=== PATIENT | female | born 1945 | race Caucasian/White ===

== ENCOUNTER 2020-01-01 13:50 | Outpatient (CLI) | payer OTHER, SELFPAY ==
--- NOTE | ~2020-01-01 | MR_ITS ---
EXAMINATION: MR lumbar spine wo con DATE: 01/01/2020 14:46 INDICATION: Lumbar radiculopathy. TECHNIQUE: Magnetic resonance imaging (MRI) of the lumbar spine was performed without intravenous con trast. Sequences included sagittal T2-weighted FSE, sagittal T2-weighted FS FSE, sagittal T1-weighted FSE, and axial T2-weighted FSE. COMPARISON: None FINDINGS: There is 10 degrees dextroscoliosis of thoracolumbar spine. There is 4 mm retrolisthesis of L2 on L3, 3 mm retrolisthesis of L3 on L4, and 6 mm anterolisthesis of L5 on S1. Vertebral body heig hts are normal. There is severely decreased disc height from L1-L2 through L5-S1. The distal spinal c ord signal intensity is normal. The conus medullaris is at L1. 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 The following disc levels are specifically discussed: L1-L2: The disc is bulging. There is mild bilateral facet joint osteoarthritis. There is mild bilater al neural foraminal stenosis. There is mild central canal stenosis. L2-L3: The disc is bulging. There is no facet joint osteoarthritis. There is mild right and moderate left neural foraminal stenosis. There is mild central canal stenosis. L3-L4: The disc is bulging. There is mild bilateral facet joint osteoarthritis. There is mild bilater al neural foraminal stenosis. There is mild central canal stenosis. L4-L5: The disc is bulging. There is severe right and moderate left facet joint osteoarthritis. There is moderate right and mild left neural foraminal stenosis. There is mild central canal stenosis. L5-S1: The disc is bulging and has an annular fissure. There is severe bilateral facet joint osteoart hritis. There is mild bilateral neural foraminal stenosis. There is mild central canal stenosis. IMPRESSION: 1. Severe lumbar spondylosis. 2. Thoracolumbar dextroscoliosis. Reviewed, dictated and finalized at location A.
== END 2020-01-01 13:51 | disposition home or self-care (01) ==
PROVIDERS: PCP Internal Medicine; Visit Provider Internal Medicine Rheumatology
DX: M47.26 Other spondylosis with radiculopathy, lumbar region (principal)
CPT/HCPCS: 72148

== ENCOUNTER 2021-01-13 09:14 | Outpatient (CLI) | payer OTHER, SELFPAY ==
[2021-01-13 10:50] LABS: Cholesterol 233 mg/dL (0-200); HDL Direct 57 mg/dL (40-60); LDL Cholesterol Calculated 151 mg/dL (<130); Triglycerides 126 mg/dL (0-150)
== END 2021-01-13 09:15 | disposition home or self-care (01) ==
LOC: CHSLAB 09:17
PROVIDERS: PCP Internal Medicine; Visit Provider Internal Medicine
DX: E78.2 Mixed hyperlipidemia (principal)
CPT/HCPCS: 36415; 80061

== ENCOUNTER 2021-07-04 19:52 | Emergency (ER) | payer OTHER, SELFPAY ==
--- NOTE | ~2021-07-04 | CT_ITS ---
EXAMINATION: CT brain wo con INDICATION: Head injury COMPARISON: None TECHNIQUE: Standard unenhanced head CT. The dose-length product (DLP) was 529.67 mGy-cm. The mA was a djusted according to patient size. Iterative reconstruction technique was employed. FINDINGS: There is no acute intraparenchymal hemorrhage. No evidence of mass lesion. No evidence of a cute infarction. There is mild periventricular and subcortical hypodensity probably related to small vessel ischemic disease. There is mild prominence of the sulci and ventricles related to cerebral atr ophy. Intracranial calcified cerebral atherosclerosis is noted. There are no extra-axial collections. There is no mass effect or midline shift. The orbits and soft tissues are unremarkable. There is mil d mucosal thickening of the paranasal sinuses. IMPRESSION: 1. No acute intracranial abnormality. 2. Age related findings. Reviewed, dictated and finalized at location F. WORK ESTIMATOR
[2021-07-04 21:18] VITALS: BP 149/116; PULSE 85; RESP 18; TEMP 37.1; O2SAT 98
--- NOTE | 2021-07-04 21:20 | ED.HEATRA ---
HPI - Head Injury General Chief complaint: Head Injury Stated complaint: head injury Source: patient and RN notes reviewed Mode of arrival: ambulatory Limitations: no limitations History of Present Illness HPI Narrative: patient tripped over her own feet and fell striking her head against the corner [place] the [place] Complaint: head injury and fall Mechanism of Injury: fall Place: home Loss of Consciousness: no Location of injury: parietal Severity: mild Quality: dull ( pain gone now) Radiation: none Other Injuries: laceration Associated symptoms: denies other symptoms Related Data Allergies Allergy/AdvReac Type Severity Reaction Status Date / Time etodolac Allergy Intermediate ELEVATED Verified 07/04/21 21:41 LIVER ENZYMES Lodine Allergy Intermediate Hives Uncoded 07/04/21 21:41 Review of Systems Review of Systems: All systems reviewed & are unremarkable except as noted in HPI and below Eyes: Eyes: Denies change in vision Gastrointestinal: Gastrointestinal: Denies nausea and Denies vomiting Neurologic: Denies confusion, Denies vertigo, Denies dizziness, Denies syncope, Denies headache(s) and Denies focal weakness Exam Const: General: healthy appearing, no acute distress and alert Nutritional Appearance: well nourished Orientation/consciousness: patient oriented x3 HENMT: Ears: TM's normal bilaterally Eyes: Conjunctivae: conjunctivae normal Pupils: Equal, round and reactive pupils present EOM: EOMs intact bilaterally Neck: Neck: normal visual inspection Resp: Effort & Inspection: normal respiratory effort Auscultation: clear to auscultation bilaterally Cardio: Rate: regular rate Rhythm: regular rhythm GI: GI Palp: Yes Soft to palpation and No Tenderness to palpation present (GI) Auscultation: normal bowel sounds Back/Spine/Pelvis: Cervical Spine: cervical ROM normal Thoracic/Lumbar Spine: thoraco-lumbar ROM normal Skin: General skin exam: normal color Wounds: wounds noted laceration left parietal region size (2 cm), drainage bloody and open Neuro: General: patient oriented x3, moves all extremities, no meningeal signs and no focal motor deficits Cranial nerves: Yes CN's II-XII intact bilaterally Speech: normal speech Gait exam (Neuro): Normal gait present Other: GCS 15 Extrem: General: normal to inspection and no clubbing, cyanosis or edema Psych: Appearance: grossly normal and well kempt Mental Status: mental status grossly normal Affect: normal affect Attitude: cooperative Thought content: Yes Normal thought content present Course Vital Signs Vital signs: Vital Signs Temperature 37.1 C 07/04/21 21:18 Pulse Rate 85 07/04/21 21:18 Respiratory Rate 18 07/04/21 21:18 Blood Pressure 149/116 H 07/04/21 21:18 Pulse Oximetry 98 07/04/21 21:18 Temperature 36.6 C 07/04/21 22:25 Pulse Rate 80 07/04/21 22:25 Respiratory Rate 18 07/04/21 22:25 Blood Pressure 134/82 07/04/21 22:25 Pulse Oximetry 100 07/04/21 22:25 Procedures Laceration Laceration 1: Date: 07/04/21 Site: scalp Side (If applicable): left Description: linear Depth: simple, single layer Local Anesthetic: lidocaine 1% and with epi Amount of anesthesia used (mL): 7 Pre-repair: wound explored ( cleansed with Shur-Clens) ====== Skin Level ====== Skin layer closed with: randell (4) ====== Subcutaneous Layer ====== ====== Muscle Layer ====== ====== Tendon Layer ====== Discharge Plan Discharge Clinical Impression: Laceration of scalp without foreign body Patient Disposition: Home, Self-Care Condition: Improved Instructions: Head Injury (ED), Staple Care (ED) Additional Instructions: do not get wet for 36 hours. [place] out and 7-10 days. Use Tylenol and or Motrin as needed for pain. Follow-up/Referrals: Polina Ramires MD [Primary Care Provider] - Time of Disposition: 22:25
[2021-07-04 22:25] VITALS: BP 134/82; PULSE 80; RESP 18; TEMP 36.6; O2SAT 100
[2021-07-04] MEDS: LIDO 1%/EPINEPHRINE 1:100,000 20 ML VIAL INFILTRATE (22:38)
[2021-07-04] MEDS: TETANUS,DIPHTHERIA,AC PERTUSSIS ADULT 0.5 ML (ADACEL) IM (23:08)
== END 2021-07-04 22:32 | disposition home or self-care (01) ==
PROVIDERS: Emergency Provider Emergency Medicine; PCP Internal Medicine
DX: S01.01XA Laceration without foreign body of scalp, initial encounter (principal); W01.198A Fall on same level from slipping, tripping and stumbling with subsequent striking against other object, initial encounter
CPT/HCPCS: 12001; 70450; 90471; 90715; 99282; 99284

== ENCOUNTER 2021-12-19 11:34 | Outpatient (CLI) | payer OTHER, SELFPAY ==
--- NOTE | ~2021-12-19 | CT_ITS ---
EXAMINATION: CT soft tissue neck wo con DATE: 12/19/2021 11:57 INDICATION: Thyroid enlargement TECHNIQUE: Computed tomography (CT) of the neck was performed without intravenous contrast. Automated exposure control and iterative reconstruction technique were employed. The dose-length product was 5 49.36 mGy-cm. COMPARISON: None FINDINGS: Thyroid gland is normal in size with suggestion of a 6 mm hypodense likely benign nodule in the right thyroid. Submandibular and parotid glands are symmetric. There are scattered normal-sized lymph no larry in the neck, no lymphadenopathy. No masses identified. Orbits are unremarkable. Visualized porti on of the thoracic aorta is normal in caliber. Densely calcified subcarinal lymph nodes consistent wi th old granulomatous disease. Visualized upper lungs are clear. Visualized sinuses and mastoid aircel ls are well aerated. Severe multilevel cervical and upper thoracic spondylosis with posterior disc os teophyte complexes resulting in mild central canal stenosis at C3-C4 through C6-C7. There is also mul tilevel mild right-sided and mild to moderate left-sided neural foraminal stenosis resulting from sev ere multilevel bilateral cervical facet and uncovertebral osteoarthritis. IMPRESSION: 1. Likely benign 6 mm nodule in the right thyroid lobe. Thyroid otherwise normal and there is no path ologically enlarged lymphadenopathy at the head, neck or visualized upper chest. 2. Severe cervical and upper thoracic spondylosis. Reviewed, dictated and finalized at location A. IMPRESSION: 1. Likely benign 6 mm nodule in the right thyroid lobe. Thyroid otherwise home l and there is no pathologically enlarged lymphadenopathy at the head, neck or visualized upper chest. 2. Severe cervical and upper thoracic spondylosis.
== END 2021-12-19 11:35 | disposition home or self-care (01) ==
LOC: CHSIMG 11:36
PROVIDERS: PCP Internal Medicine; Visit Provider Internal Medicine
DX: R49.0 Dysphonia (principal); E04.9 Nontoxic goiter, unspecified
CPT/HCPCS: 70490

== ENCOUNTER 2022-04-19 10:04 | Outpatient (RCR) | payer OTHER, SELFPAY ==
--- NOTE | 2022-04-19 10:57 | PTOPEVAL1 ---
Assessment and note entered by Shimon Monroe Evaluation Information Assessment Status Evaluation Diagnosis lumbar radiculopathy Onset 03/31/22 Subjective Information Pt. reports she has had on/off back pain for years . She reports that she has done therapy in the past with some success. She reports that she has recently noticed that her walking and her balance are worsening. She reports that she is falling and has fallen 2 times in the past 6 months. She reports that she does not use an AD. She continues to drive and perform all IADL's despite balance issues. She reports that her back pain is constant and is across the lwo back on both sides . She reports that pain will also occasionally radiate down the right leg. She reports that back pain is most notable with prolonged standing activities. She reports that her goal for therapy remains to mostly improve her balance and decrease pain. Reported Pain Level Pain Score 2: Self Report Assessment PT Clinical Summary Pt. is a 76 year old female who enters the clinic due to low back pain. Her biggest concern is in regards to impaired balance. She presents with moderate fall risk, back pain, impaired gait and l .e. weakness. Continued treatment is indicated in order to improve these areas to allow for improved comfort and safety with IADL's Plan of Care Interventions Electrical Stimulation,Gait Training,Manual Therapy,Mechanical Traction,Neuro Re-education, Therapeutic Activities,Therapeutic Exercise PT Services Indicated Yes Treatment Frequency and 2x/week x 10 visits Duration These treatments will address the objective and functional deficits as defined above. The patient will be advanced safely and appropriately in order for the patient to progress towards his/her prior level of function. Additional exercises will be introduced and as well as a comprehensive home exercise program upon discharge, if needed, ?to ensure carryover of functional gains achieved in the clinic. This treatment plan has been reviewed and agreement upon by the patient.
--- NOTE | 2022-05-24 16:19 | PTOPEVAL1 ---
Assessment and note entered by Shimon Monroe Evaluation Information Assessment Status Discharge Diagnosis lumbar radiculopathy Onset 03/31/22 Subjective Information Pt. reports little pain on this date. She reports that she still has moments that pain levels can be 6/10. She has noticed improvements in her core strength. She also expresses concerns regarding her balance. Reported Pain Level Pain Score 2: Self Report Assessment PT Clinical Summary Pt. demonstrates progress in regards to strength and functional testing. She continues to present with weakness and impaired gait, despite progress. She expresses desire to continue with treatment. At this time recommend pt. attend therapy at a decreased frequency to continue to monitor progress in regards to strength and to continue to decrease pain. Plan of Care Interventions Electrical Stimulation,Hot Pack/Cold Pack,Manual Therapy,Therapeutic Activities,Therapeutic Exercise Other Interventions dry needling Treatment Frequency and 1x/week every 2 weeks for 4 visits Duration These treatments will address the objective and functional deficits as defined above. The patient will be advanced safely and appropriately in order for the patient to progress towards his/her prior level of function. Additional exercises will be introduced and as well as a comprehensive home exercise program upon discharge, if needed, ?to ensure carryover of functional gains achieved in the clinic. This treatment plan has been reviewed and agreement upon by the patient.
== END 2022-07-26 23:59 | disposition home or self-care (01) ==
LOC: CHSPT 10:04
DX: M54.16 Radiculopathy, lumbar region (principal)
CPT/HCPCS: 97014; 97110; 97112; 97140; 97161; 97530; G0283

== ENCOUNTER 2022-10-31 14:47 | Outpatient (CLI) | payer OTHER, SELFPAY ==
[2022-11-05 20:12] LABS: Vitamin D 25 Hydroxy 46 ng/mL (30-100)
== END 2022-10-31 14:48 | disposition home or self-care (01) ==
LOC: CHSLAB 14:48
PROVIDERS: PCP Internal Medicine; Visit Provider Internal Medicine Rheumatology
DX: E55.9 Vitamin D deficiency, unspecified (principal)
CPT/HCPCS: 36415; 82306

== ENCOUNTER 2023-03-26 13:47 | Outpatient (CLI) | payer OTHER, SELFPAY ==
[2023-03-26 14:02] LABS: Basophils Absolute Auto 0.04 K/mm3 (0.00-0.10); Basophils Percent Auto 0.7 % (0.0-1.0); Eosinophils Percent Auto 1.8 % (1.0-6.0); Hematocrit 43.4 % (35.0-42.0); Hemoglobin 14.4 g/dL (11.7-13.8); Immature Granulocyte Absolute 0.02 K/mm3 (0.00-0.00); Immature Granulocyte Percent A 0.4 % (0.0-0.0); Lymphocytes Absolute Auto 1.83 K/mm3 (1.10-4.50); Lymphocytes Percent Auto 32.1 % (18.0-42.0); Mean Corpuscular HGB Conc 33.2 g/dL (32.0-36.0); Mean Corpuscular Hemoglobin 31.4 pg (27.0-31.0); Mean Corpuscular Volume 94.6 fL (78.0-102.0); Mean Platelet Volume 9.1 fl (9.2-11.8); Monocytes Absolute Auto 0.52 K/mm3 (0.10-0.90); Monocytes Percent Auto 9.1 % (2.0-11.0); Neutrophils Absolute Auto 3.2 K/mm3 (1.7-7.2); Neutrophils Percent Auto 55.9 % (50.0-70.0); Platelet Count Result 211 K/mm3 (150-420); Red Blood Count 4.59 M/mm3 (4.20-5.40); Red Cell Distribution Width 12.1 % (11.6-14.4); White Blood Count 5.7 K/mm3 (4.8-10.8)
[2023-03-26 14:33] LABS: Alanine Aminotransferase 35 U/L (14-59); Albumin Level 3.9 g/dL (3.4-5.0); Alkaline Phosphatase 76 U/L (46-116); Anion Gap 11 mmol/L (8-16); Aspartate Amino Transferase 23 U/L (15-37); Bilirubin,Total 0.5 mg/dL (0.00-1.00); Blood Urea Nitrogen 16 mg/dL (7-18); Calcium 9.9 mg/dL (8.5-10.1); Carbon Dioxide 28 mmol/L (21-32); Chloride 103 mmol/L (98-108); Estimated Glomerular Filt Rate > 60; Glucose 92 mg/dL (70-99); Osmolality Calculated 295 mOsm/kg (285-295); Potassium 4.1 mmol/L (3.5-5.1); Sodium 142 mmol/L (136-145); Total Protein 7.2 g/dL (6.4-8.2)
[2023-03-31 22:50] LABS: Vitamin D 25 Hydroxy 49 ng/mL (30-100)
== END 2023-03-26 13:48 | disposition home or self-care (01) ==
LOC: CHSLAB 13:50
PROVIDERS: PCP Internal Medicine; Visit Provider Internal Medicine Rheumatology
DX: G47.62 Sleep related leg cramps (principal); Z79.899 Other long term (current) drug therapy
CPT/HCPCS: 36415; 80053; 82306; 85025

== ENCOUNTER 2023-07-19 09:14 | Outpatient (CLI) | payer OTHER, SELFPAY ==
[2023-07-19 09:26] LABS: Basophils Absolute Auto 0.03 K/mm3 (0.00-0.10); Basophils Percent Auto 0.5 % (0.0-1.0); Eosinophils Absolute Auto 0.05 K/mm3 (0.02-0.50); Eosinophils Percent Auto 0.8 % (1.0-6.0); Hematocrit 42.2 % (35.0-42.0); Immature Granulocyte Absolute 0.03 K/mm3 (0.00-0.00); Immature Granulocyte Percent A 0.5 % (0.0-0.0); Lymphocytes Absolute Auto 1.48 K/mm3 (1.10-4.50); Lymphocytes Percent Auto 23.6 % (18.0-42.0); Mean Corpuscular HGB Conc 33.2 g/dL (32.0-36.0); Mean Corpuscular Hemoglobin 30.8 pg (27.0-31.0); Mean Platelet Volume 8.9 fl (9.2-11.8); Monocytes Absolute Auto 0.39 K/mm3 (0.10-0.90); Monocytes Percent Auto 6.2 % (2.0-11.0); Neutrophils Absolute Auto 4.3 K/mm3 (1.7-7.2); Neutrophils Percent Auto 68.4 % (50.0-70.0); Platelet Count Result 194 K/mm3 (150-420); Red Blood Count 4.54 M/mm3 (4.20-5.40); Red Cell Distribution Width 12.2 % (11.6-14.4); White Blood Count 6.3 K/mm3 (4.8-10.8)
[2023-07-19 10:37] LABS: Alanine Aminotransferase 32 U/L (14-59); Albumin Level 3.8 g/dL (3.4-5.0); Alkaline Phosphatase 78 U/L (46-116); Anion Gap 11 mmol/L (8-16); Aspartate Amino Transferase 19 U/L (15-37); Bilirubin,Total 0.4 mg/dL (0.00-1.00); Blood Urea Nitrogen 22 mg/dL (7-18); Calcium 9.4 mg/dL (8.5-10.1); Carbon Dioxide 30 mmol/L (21-32); Chloride 102 mmol/L (98-108); Estimated Glomerular Filt Rate > 60; Ferritin 145 ng/mL (8-252); Free T3 2.67 pg/mL (2.18-3.98); Free T4 Free Thyroxine 0.86 ng/dL (0.76-1.46); Glucose 95 mg/dL (70-99); Iron 107 ug/dL (50-170); Osmolality Calculated 299 mOsm/kg (285-295); Sodium 143 mmol/L (136-145); Thyroid Stimulating Hormone 1.33 uIU/mL (0.36-3.74); Total Protein 7.2 g/dL (6.4-8.2)
== END 2023-07-19 09:15 | disposition home or self-care (01) ==
LOC: CHSLAB 09:16
PROVIDERS: PCP Internal Medicine; Visit Provider Internal Medicine
DX: E04.9 Nontoxic goiter, unspecified (principal); R49.0 Dysphonia; J31.0 Chronic rhinitis; M12.9 Arthropathy, unspecified; J32.9 Chronic sinusitis, unspecified
CPT/HCPCS: 36415; 80053; 82728; 83540; 84439; 84443; 84481; 85025

== ENCOUNTER 2023-07-21 19:08 | Emergency (ER) | payer OTHER, SELFPAY ==
[2023-07-21 19:09] VITALS: BP 144/73; PULSE 91; RESP 12; TEMP 36.6; O2SAT 94
--- NOTE | 2023-07-21 19:19 | ED.GENADULT ---
HPI - General Adult General Chief complaint: Eye Problems Stated complaint: right eye irritation Time Seen by Provider: 07/21/23 19:10 History of Present Illness HPI narrative: Janet is a 78F with a PMH of RLS and dry eyes that presented to the ED with irritation in the right eyes for a couple days. She denies any trauma to the eye and there are no vision changes. There is no nausea, vomiting, or headache. It does not hurt to look around. No vision changes. She has an eye appointment with her eye doctor next week for a general checkup. Related Data Home Medications Medication Instructions Recorded Confirmed celecoxib 200 mg capsule 200 mg PO DAILY 07/21/23 07/21/23 perfluorohexyloctane (PF) 100 % 1 drp EACH EYE QID 07/21/23 07/21/23 eye drops ([place]) ropinirole 0.5 mg tablet 0.5 mg PO HS 07/21/23 07/21/23 Allergies Allergy/AdvReac Type Severity Reaction Status Date / Time etodolac Allergy Intermediate ELEVATED Verified 07/21/23 19:13 LIVER ENZYMES Lodine Allergy Intermediate Hives Uncoded 07/04/21 21:41 Review of Systems Review of Systems: All systems reviewed & are unremarkable except as noted in HPI and below Exam Const: General: cooperative, healthy appearing, comfortable, no acute distress, well developed, alert, awake and Physically active Orientation/consciousness: oriented to person, oriented to place and oriented to time HENMT: Head: normal to inspection, normocephalic and atraumatic Ears: hearing grossly normal bilaterally and external ears normal Face/Nose/Sinus: Normal external nose present Eyes: General: appearance normal, both eyes and all related structures Periorbital: periorbital findings normal Sclera: sclerae normal Pupils: Equal, round and reactive pupils present Other: IOP was 14. After tetracaine eye drops were placed in the eye she had immediate relief. Fluorescein eye exam showed a very small corneal abrasion just at the 12 o'clock position. No foreign body visualized. Neck: Neck: normal visual inspection Chest: Chest palpation & inspection: normal inspection of the chest Resp: Effort & Inspection: normal respiratory effort, able to speak in complete sentences and no respiratory distress Cardio: Jugular venous distension: no JVD Skin: General skin exam: normal color and no rashes or lesions noted Neuro: General: oriented to person, oriented to place and oriented to time Cranial nerves: Yes Equal, round and reactive pupils present Extrem: General: normal to inspection Course Course Emergency Course: Performed eye exam as above. Vital Signs Vital signs: Vital Signs Temperature 97.9 F 07/21/23 19:09 Pulse Rate 91 07/21/23 19:09 Respiratory Rate 12 07/21/23 19:09 Blood Pressure 144/73 H 07/21/23 19:09 Pulse Oximetry 94 07/21/23 19:09 Oxygen Delivery Room Air 07/21/23 19:09 Temperature 97.9 F 07/21/23 19:09 Pulse Rate 91 07/21/23 19:09 Respiratory Rate 12 07/21/23 19:09 Blood Pressure 144/73 H 07/21/23 19:09 Pulse Oximetry 94 07/21/23 19:09 Oxygen Delivery Room Air 07/21/23 19:09 Medical Decision Making Vital Signs Vital Signs: Vital Signs Temperature 97.9 F 07/21/23 19:09 Pulse Rate 91 07/21/23 19:09 Respiratory Rate 12 07/21/23 19:09 Blood Pressure 144/73 H 07/21/23 19:09 Pulse Oximetry 94 07/21/23 19:09 Oxygen Delivery Room Air 07/21/23 19:09 Temperature 97.9 F 07/21/23 19:09 Pulse Rate 91 07/21/23 19:09 Respiratory Rate 12 07/21/23 19:09 Blood Pressure 144/73 H 07/21/23 19:09 Pulse Oximetry 94 07/21/23 19:09 Oxygen Delivery Room Air 07/21/23 19:09 Discharge Plan Discharge Clinical Impression: Corneal abrasion Patient Disposition: Home, Self-Care Condition: Stable Instructions: Corneal Abrasion (ED) Additional Instructions: Please feel free to return to the emergency department for any new, concerning or worsening symptoms. Sho
[2023-07-21] MEDS: FLUORESCEIN SOD 1 MG/STRIP EACH EYE (19:22)
[2023-07-21] MEDS: TETRACAINE HCL 0.5% OPHTH SOLN 4 ML BTL 1 DROP RIGHT EYE (19:22)
== END 2023-07-21 20:15 | disposition home or self-care (01) ==
PROVIDERS: Emergency Provider Family Medicine; PCP Internal Medicine
DX: S05.01XA Injury of conjunctiva and corneal abrasion without foreign body, right eye, initial encounter (principal); Z79.899 Other long term (current) drug therapy; X58.XXXA Exposure to other specified factors, initial encounter
CPT/HCPCS: 99283

== ENCOUNTER 2023-07-24 12:19 | Outpatient (CLI) | payer OTHER, SELFPAY ==
--- NOTE | ~2023-07-24 | US_ITS ---
EXAMINATION: US thyroid DATE: 07/24/2023 12:48 INDICATION: Dysphagia. Thyroid enlargement. TECHNIQUE: Multiple ultrasound images of the thyroid were obtained. COMPARISON: CTA neck 12/19/2021 FINDINGS: The right thyroid lobe measures 3.5 x 1.1 x 1.4 cm. The left thyroid lobe measures 2.7 x 1.3 x 1.2 c m. In the right thyroid lobe, there is a 12 mm predominantly solid, hyperechoic, wider than tall nod ule with ill-defined margin without echogenic foci (TI-RADS TR3). IMPRESSION: 1. Thyroid nodule, likely not clinically significant. No follow-up is needed. Reviewed, dictated and finalized at location A. S BLOCK BENDER
== END 2023-07-24 12:20 | disposition home or self-care (01) ==
LOC: CHSIMG 12:20
PROVIDERS: PCP Internal Medicine; Visit Provider Internal Medicine
DX: R13.12 Dysphagia, oropharyngeal phase (principal); E04.9 Nontoxic goiter, unspecified
CPT/HCPCS: 76536

== ENCOUNTER 2024-09-29 10:21 | Outpatient (CLI) | payer OTHER, SELFPAY ==
--- NOTE | ~2024-09-29 | MR_ITS ---
MRI of the lumbar spine Clinical History: Back pain Technique: Axial T2-weighted images, and sagittal T1-weighted, T2-weighted, and and T2 fat-sat images were acquired. COMPARISON: 01/01/2020 Findings: No acute fracture or subluxation. Stable grade 1 retrolisthesis of L2 over L3, and of L3 ov er L4. Stable grade 1 anterolisthesis of L5 over S1. There are reactive marrow signal changes about t he L1-L2 and L5-S1 disc spaces due to underlying degenerative disc disease. At L1-L2, there is severe degenerative disc narrowing. There is mild disc bulge and moderate facet ar thropathy. No whit central canal stenosis. There is moderate to advanced right neural foraminal narr owing. There is mild left neural foraminal narrowing. At L2-L3, there is advanced degenerative disc narrowing. There is mild disc bulge and moderate facet arthropathy. No central canal stenosis. There is severe left neural foraminal narrowing. There is mil d right neural foraminal narrowing. At L3-L4, there is advanced degenerative disc narrowing. There is disc bulge and moderate facet arthr opathy. No central canal stenosis. There is moderate bilateral neural foraminal narrowing. At L4-L5, there is mild degenerative disc narrowing. There is mild disc bulge with advanced facet art hropathy. No central canal stenosis. There is advanced right neural foraminal narrowing, and minimal left neural foraminal narrowing. At L5-S1, there is severe degenerative thinning. There is diffuse disc bulge/uncovering with severe f acet arthropathy. There is mild to moderate central canal stenosis. There is advanced bilateral neura l foraminal narrowing, right worse than left. Paravertebral soft tissues are unremarkable. Impression: Advanced degenerative spondylosis, as above. Multiple grade 1 listheses, as above. Reviewed, dictated and finalized at location M. Impression: Advanced degenerative spondylosis, as above. Multiple grade 1 listheses, as above.
== END 2024-09-29 10:22 | disposition home or self-care (01) ==
PROVIDERS: PCP Internal Medicine Rheumatology; Referring Provider Internal Medicine; Visit Provider Nurse Practitioner Family
DX: M47.26 Other spondylosis with radiculopathy, lumbar region (principal)
CPT/HCPCS: 72148

== ENCOUNTER 2025-04-24 10:24 | Outpatient (CLI) | payer OTHER, SELFPAY ==
--- OUTSIDE RECORDS SUMMARY | 2025-04-06 05:35 | XMS_ITS | Continuity of Care Document ---
Author Organization [facility] Address [address] [place] [address] Phone Care Team Providers Care Dietitian Teacher Name Role Phone Davy Domínguez OD Unavailable Unavailable Medications Medication Instructions Dosage Effective Dates (start - stop) Status Comments Simbrinza 1 %-0.2 % eye drops,suspension instill 1 drop by ophthalmic route 2 times every day into OS - Active oasis tears OPHTHALMIC DROPS 1 drop BID OU - Active Astepro Allergy 205.5 mcg (0.15 %) nasal spray spray 1 spray by intranasal route 1x - Active macular shield multivitamin ORAL TABLET 2 PO BID - Active prednisolone sod phos 1 %-moxifloxacin 0.5 %-bromfen 0.075 % eye drops 1 drop TID OU - Active myze lid wipes TOPICAL TOWELETTE QD OU - Active Vevye 0.1 % eye drops Instill one drop into both eyes 2x daily - Active optase Hylo Ointment OPHTHALMIC ADH. PATCH QHS OU - Active Miebo (PF) 100 % eye drops 1 drop BID OU - Active vitamin d (unknown strength) Not Available - Active MELATONIN (unknown strength) Not Available - Active OMEGA-3 (unknown strength) 1 tab BID Not Available - Active Calcium Citrate + D 315 mg-5 mcg (200 unit) tablet - Active Glucosamine 500 mg tablet - Active Tylenol Arthritis Pain 650 mg tablet,extended release take 2 tablet by oral route every 8 hours as needed swallowing whole with water. Do not break, crush, dissolve and/or chew. 1300 MG - Active Procedures Procedure Date POSTOP FOLLOW-UP VISIT POSTOP FOLLOW-UP VISIT CATARACT SURG W/IOL, 1 STAGE Tecnis Multifocal =2.75 +3.25 ORA POSTOP FOLLOW-UP VISIT POSTOP FOLLOW-UP VISIT CATARACT SURG W/IOL, 1 STAGE Tecnis Multifocal =2.75 +3.25 ORA OPHTHALMIC BIOMETRY OFFICE/OUTPATIENT VISIT, EST Sx Drops OMIN C EYE PHOTOGRAPHY - EXTERNAL REFRACTION MICROFLUID HOA TEARS OFFICE/OUTPATIENT VISIT, EST Results Test Name Date and Time Measure Units Reference Range Abnormal Flag Status Commen ts Panel Description: [id number] Final Image Zeiss Result 1 Advance Directives Directive Yes / No Effective Date File Name No Information Encounters Encounter Description Practice Location Reason(s) For Visit Diagnoses Date Provider Providers Copied on Encounter [facility], [address] [place] [address], [place], [place], [id number], [place] tel:[phone] [facility] Cataract PO (chief complaint) Postoperative visitSalzmann 's 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Open angle with borderline findings, low risk, bilateralDry eye syndrome, bilateralPCO (posterior capsular opacification ), rightSquamous blepharitis of both upper and lower eyelid of right eyeSquamous blepharitis of both upper and lower eyelid of left eyeChronic allergic conjunctiviti sPunctate keratitis, bilateral Mar- Sang Bhatti. [address] [place] [address], [address], [place], [place], [id number], [place]. tel:[phone] Referring Provider: No PCP A.. [facility], [address] [place] [address], [place], [place], [id number], [place] tel:[phone] [facility] Cataract Post-Op (chief complaint) Chronic allergic conjunctiviti sSalzmann's 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PCO (posterior capsular opacification ), rightSquamous blepharitis of both upper and lower eyelid of right eyeOpen angle with borderline findings, low risk, bilateralDry eye syndrome, bilateralPunc bustos keratitis, bilateralPost operative visitSquamous blepharitis of both upper and lower eyelid of left eye Oct-0 5 Marie Ribera. [address] [facility], [address], [place], [place], [id number], [place]. tel:[phone] Referring Provider: No PCP AArturo. [facility], [address] [place] [address], [id number], [place] tel:[phone] [facility] No Information Oct-0 5 Bry Rivera. [id number] [place] [address], [address], [place], [place], [id number], [place]. tel:[phone] Referring Provider: Miguel Londono, [address] [place] [address] [address], [place], [address]. tel:[phone] [facility], [address] [place] [address], [id number], [place] tel:[phone] [facility] 1 Week PO CE w/IOL MF (chief complaint) Squamous blepharitis of both upper and lower eyelid of left eyePunctate keratitis, bilateralChro mariela allergic conjunctiviti sSalzmann's 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Open angle with borderline findings, low risk, bilateralDry eye syndrome, bilateralPost operative visitCombined forms of age-related cataract, left eyeSquamous blepharitis of both upper and lower eyelid of right eyePCO (posterior capsular opacification ), right Sep-1 5 Sang Bhatti. [address] [facility], [address], [place], [place], [id number], [place]. tel:[phone] Referring Provider: No PCP AArturo. [facility], [address] [place] [address], [id number], [place] tel:[phone] [facility] Cataract PO (chief complaint) Punctate keratitis, bilateralChro mariela allergic conjunctiviti sSalzmann's 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Open angle with borderline findings, low risk, bilateralDry eye syndrome, bilateralSqua mous blepharitis of both upper and lower eyelid of right eyeSquamous blepharitis of both upper and lower eyelid of left eyePostoperat dawood visitCombined forms of age-related cataract, left eye Sep-0 5 Sang Bhatti. [address] [facility], [address], [place], [place], [id number], [place]. tel:[phone] Referring Provider: Katt Mariano. [facility], [address] [place] [address] 201, [place], [place], [id number], [place] tel:[phone] [facility] No Information Sep-0 5 Bry Rivera. [address] [place] [address], [address], [place], [place], [id number], [place]. tel:[phone] Referring Provider: Miguel Londono, [address] [place] [address] [address], [place], [address]. tel:[phone] OFFICE/OUTPA TIENT VISIT, [facility], [address] [place] [address], [place], [place], [id number], [place] tel:[phone] [facility] Cataract Evaluation (chief complaint) Squamous blepharitis of both upper and lower eyelid of left eyeSquamous blepharitis of both upper and lower eyelid of right eyeSalzmann's 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Combined forms of age-related cataract, bilateralChro mariela allergic conjunctiviti sPunctate keratitis, bilateralDry eye syndrome, bilateralOpen angle with borderline findings, low risk, bilateral Aug-2 5 Bry Rivera. [address] [facility], [address], [place], [place], [id number], [place]. tel:[phone] Referring Provider: Davy Domínguez, [address] [place] [address] [address], [place], [address]. tel:[phone] OFFICE/OUTPA TIENT VISIT, EST [facility], [address] [place] [address], [id number], tel:[phone] [facility] follow up Dry eyes (chief complaint) Squamous blepharitis of both upper and lower eyelid of right eyeSquamous blepharitis of both upper and lower eyelid of left eyeDry eye syndrome, bilateralChro mariela allergic conjunctiviti sPunctate keratitis, bilateralSalz choi's 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Combined forms of age-related cataract, bilateralOpen angle with borderline findings, low risk, bilateral Dec- 5 Sang Bhatti. [address] [facility], [address], [place], [place], [id number], [place]. tel:[phone] Referring Provider: No PCP A.. [facility], [address] [place] [address], [place], [place], [id number], tel:[phone] [facility] Open angle with borderline findings, low risk, bilateralDry eye syndrome, bilateralPunc bustos keratitis, bilateralSqua mous blepharitis of both upper and lower eyelid of right eyeSquamous blepharitis of both upper and lower eyelid of left eyeChronic allergic conjunctiviti sCombined forms of age-related cataract, bilateralSalz choi's 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 5 Sang Bhatti. [address] [facility], [address], [place], [place], [id number], [place]. tel:[phone] Family History Family Member Type Diagnosis Age At Onset Problem Family history of Cataracts Problem Family history of Diabetes m ellitus Problem Family history of Glaucoma Payers Payer name Insurance type Covered republican ID Authoriza tion(s) No Information Social History Type Description Quantity Date Captured Comments Alcohol Use Details No Caffeine Use Details Unknown Tobacco Use Status Current non-smoker Smoking Status Never smoker Sex Female Chief Complaint And Reason For Visit From encounter dated '04/06/2025 10:35'. Cataract PO (chief complaint). Description: PT presents for Cataract PO preformed by RPM on OD 03/02/2025 and OS 03/30/2025 with MF IOL OU. PT states she has not been seeing very well. No pain or discomfort. Redness on and off, She is hesitant to drive. OS TV distance is okay but everything else is not super clear. Reason For Referral Reason For Referral No Information Plan Of Treatment Date Type Action Status Appointment Janet Borjas BOOKED Future Order: Radiology Order [facility] HD-OCT OA RITO ([id number]), Sent on: Sent Future Order: Radiology Order iss IOL Master OA RITO ([id number]), Sent on: Sent Future Order: Radiology Order [facility] [place] OA RITO ([id number]), Sent on: Sent History Of Present Illness Encounter Date Complaint History Of Prese nt Illness Cataract PO PT presents for Cataract PO preformed by RPM on OD 03/02/2025 and OS 03/30/2025 with MF IOL OU. PT states she has not been seeing very well. No pain or discomfort. Redness on and off, She is hesitant to drive. OS TV distance is okay but everything else is not super clear. Cataract Post-Op The 79 year old patient presents for evaluation of Cataract Post-Op in the right eye and left eye. It affects OU. The condition is improving. Patient denies: any drop problems and is using drops correctly. Patient states surgery went fine, no pain or discomfort. 1 Week PO CE w/IOL MF The 79 yea r old patient presents for evaluation of 1 Week PO CE w/IOL MF in the right eye. It affects OD. The condition is significant. It started about 1 week(s) ago. Pt states OD has not cleared up completely. Doesn't feel safe driving. Blurring has cleared a couple times but not consistently. No pain/discomfort. Cataract PO Pt presents for Cataract PO preformed by RPM on OD 03/02/2025 with MR IOL. Pt states she is feeling good. No pain or discomfort. Using drops as instructed.Pt states she is using myze lids wipes and was wondering how to use them after surgery. Cataract Evaluation The 79 year old patient presents for evaluation of Cataracts in the right eye and left eye. It occurs daily. It affects OU. The condition is mild. PT states she was noticing major changes before her last appointment with APR. Sunlight glare bothers her. follow up Dry eyes The 79 year o ld patient presents for evaluation of follow up Dry eyes in the right eye and left eye. The symptom is frequent. The condition is described as itchy. redness crusty, Blurrier Functional Status Date Functional Assessmen t No Information Instructions Date Instruction Additional Infor herb Mar- Impression/Plan Related to Open angle with borderline findings, low risk, bilateral Impression/Plan Related to Dry e ye syndrome, bilateral Impression/Plan Related to PCO ( posterior capsular opacification), right Impression/Plan Related to Squam ous blepharitis of both upper and lower eyelid of right eye Impression/Plan Related to Squam ous blepharitis of both upper and lower eyelid of left eye Impression/Plan Related to Salzm dilshad's 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 Impression/Plan Related to Posto perative visit Impression/Plan Related to Punct ate keratitis, bilateral Impression/Plan Related to Chron ic allergic conjunctivitis Impression/Plan Related to Salzm dilshad's 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 Impression/Plan Related to Chron ic allergic conjunctivitis Impression/Plan Related to Squam ous blepharitis of both upper and lower eyelid of left eye Impression/Plan Related to Posto perative visit Impression/Plan Related to Dry e ye syndrome, bilateral Impression/Plan Related to Punct ate keratitis, bilateral Impression/Plan Related to Open angle with borderline findings, low risk, bilateral Oct-06-2025 Impression/Plan Related to Squam ous blepharitis of both upper and lower eyelid of right eye Impression/Plan Related to PCO ( posterior capsular opacification), right Impression/Plan Related to PCO ( posterior capsular opacification), right Impression/Plan Related to Squam ous blepharitis of both upper and lower eyelid of right eye Impression/Plan Related to Salzm dilshad's 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 Impression/Plan Related to Open angle with borderline findings, low risk, bilateral Impression/Plan Related to Dry e ye syndrome, bilateral Impression/Plan Related to Posto perative visit Impression/Plan Related to Combi elton forms of age-related cataract, left eye Impression/Plan Related to Squam ous blepharitis of both upper and lower eyelid of left eye Impression/Plan Related to Punct ate keratitis, bilateral Impression/Plan Related to Chron ic allergic conjunctivitis Impression/Plan Related to Squam ous blepharitis of both upper and lower eyelid of left eye Impression/Plan Related to Punct ate keratitis, bilateral Impression/Plan Related to Chron ic allergic conjunctivitis Impression/Plan Related to Salzm dilshad's 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 Impression/Plan Related to Open angle with borderline findings, low risk, bilateral Impression/Plan Related to Dry e ye syndrome, bilateral Impression/Plan Related to Squam ous blepharitis of both upper and lower eyelid of right eye Impression/Plan Related to Posto perative visit Impression/Plan Related to Combi elton forms of age-related cataract, left eye Impression/Plan Related to Dry e ye syndrome, bilateral Impression/Plan Related to Punct ate keratitis, bilateral Impression/Plan Related to Squam ous blepharitis of both upper and lower eyelid of left eye Impression/Plan Related to Squam ous blepharitis of both upper and lower eyelid of right eye Impression/Plan Related to Chron ic allergic conjunctivitis Impression/Plan Related to Salzm dilshad's 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 Impression/Plan Related to Combi elton forms of age-related cataract, bilateral Impression/Plan Related to Open angle with borderline findings, low risk, bilateral Impression/Plan Related to Squam ous blepharitis of both upper and lower eyelid of left eye Impression/Plan Related to Dry e ye syndrome, bilateral Impression/Plan Related to Chron ic allergic conjunctivitis Impression/Plan Related to Punct ate keratitis, bilateral Impression/Plan Related to Salzm dilshad's 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 Impression/Plan Related to Combi elton forms of age-related cataract, bilateral Impression/Plan Related to Open angle with borderline findings, low risk, bilateral Impression/Plan Related to Squam ous blepharitis of both upper and lower eyelid of right eye Impression/Plan Related to Dry e ye syndrome, bilateral Impression/Plan Related to Punct ate keratitis, bilateral Impression/Plan Related to Open angle with borderline findings, low risk, bilateral Impression/Plan Related to Chron ic allergic conjunctivitis Impression/Plan Related to Combi elton forms of age-related cataract, bilateral Impression/Plan Related to Salzm dilshad's 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 Condition: stable. assessment Open angle with borderline findi ngs, low risk, bilateral Mar- impression Open angle with bord fracisco findings, low risk, bilateral: H40.013. Condition: stable. assessment Dry eye syndrome, bilateral Mar- impression Dry eye syndrome, bilateral: H04 .123. Mar- assessment PCO (posterior capsular opacific ation), right Mar- impression PCO (posterior capsular opacific ation), right: H26.491. Mar- assessment Squamous blepharitis of both upper and lower eyelid of right eye Mar- impression Squamous blepharitis of both upper and lower eyelid of right eye: H01.02A. Condition: stable. assessment Squamous blepharitis of both upper and lower eyelid of left eye impression Squamous blepharitis of both upper and lower eyelid of left eye: H01.02B. assessment Chronic allergic conjunctivitis impression Chronic allergic conjunctivitis: H10.45. Condition: improved. assessment Punctate keratitis, bilateral Oc impression Punctate keratitis, bilateral: H16.143. Condition: stable.S/P Prokera 07/2023 Patient Care Teams Name Effective Dates (start - stop) Status Members No Information
--- NOTE | ~2025-04-24 | CT_ITS ---
EXAMINATION: CT facial bones wo con DATE: 04/24/2025 10:43 INDICATION: Left facial injury post fall TECHNIQUE: Computed tomography (CT) of the facial bones and maxillofacial region was performed without intravenous contrast. Coronal reconstructions were obtained. Automated exposure control and iterative reconstruction technique were employed. The dose-length product was 294.67 mGy-cm. COMPARISON: None. FINDINGS: No maxillofacial fractures. Specifically the nasal bones, zygomatic arches, mandible and parish of the orbits and paranasal sinuses are all intact. Severe osteoarthritis at the bilateral temporomandibular joints. Nasal septum remains intact and midline. Changes of bilateral intraocular lens replacement. Orbits are otherwise normal. Mild mucosal thickening bilateral ethmoid sinuses. Mastoid air cells and middle ear cavities are clear. Severe cervical spondylosis. IMPRESSION: 1. No maxillofacial fractures. Reviewed, dictated and finalized at location A.
--- OUTSIDE RECORDS SUMMARY | 2025-04-24 10:57 | XMS_ITS | Encounter Summary ---
Author Organization [facility] Address [address] [place] [address] Care Team Providers Care General Freight Agent Name Role Phone Callie Kelly MD Primary Care Provider [phone] Encounter Details Date Type Department Care Team (Late st Contact Info) Description 01/18/2018 Lab Requisition [facility] [address] [facility] [place] [id number] Lars Isaac MD [address] [place] [address] Social History Tobacco Use Types Packs/Day Years Used Date Smoking Tobacco: Never Smokeless Tobacco: Never Alcohol Use Standard Drinks/Week Comments No 0 (1 standard drink = 0.6 oz pur e alcohol) Comments Unknown Sex and Gender Information Value Date Recorded Sex Assigned at Not on file Legal Sex Female 5:39 PM END POL[employer]ER Gender Identity Not on file Sexual Orientation Not on file documented as of this encounter Plan of Treatment Not on file documented as of this encounter Procedures Procedure Name Priority Date/Time Associated Diagnosis Comments DERMATOPATHOLOGY Routine 01/17/2018 12:0 0 AM CDT documented in this encounter Results * DERMATOPATHOLOGY (01/17/2018 12:00 AM CDT) Case Report Dermatopathology Report Case: [id number] Authorizing Provider: Lars Isaac MD Collected: 01/17/2018 12:00 AM Pathologist: Rachell Pickett MD Received: 01/18/2018 12:24 PM Specimen: Skin, midline mid back 07/30/201 8 1:50 PM CDT DERMATOPATHOLOGY LABORATORY Final Diagnosis Specimen A. SKIN, midline mid back: SEBORRHEIC KERATOSIS, INFLAMED (L82.0) 1:50 PM CDT DERMATOPATHOLOGY LABORATORY at 1350 CDT Clinical History R/O SCC, BCC, Hunter's, ISK, LPLK. 1:50 PM CDT DERMATOPATHOLOGY LABORATORY Gross Description Specimen A: Received is one formalin filled container labeled with the patient's name and designated midline mid back. The specimen consists of a shave biopsy measuring [id number]. Jar 0. 1:50 PM CDT DERMATOPATHOLOGY LABORATORY Microscopic Description Specimen A. SKIN, midline mid back: There is hyperkeratosis, parakeratosis, papillomatosis, and acanthosis of the epidermis. 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 1:50 PM CDT DERMATOPATHOLOGY LABORATORY Disclaimer An external and internal positive and negative controls are appropriate for the histochemical, immunohistochemical and immunofluorescence stain(s) in this case (if any), except where stated explicitly. The performance characteristics of the stain(s) cited in this report were developed and its performance characteristic determined by the Dermatopathology Laboratory at [facility]. These tests need not be, and therefore are not, approved by the [place] Food and Drug Administration. The tests are used for clinical purposes. Billing Codes Specimen Charges Stain Charges 63345 1 1:50 PM CDT DERMATOPATHOLOGY LABORATORY Embedded Images 1:50 PM CDT DERMATOPATHOLOGY LABORATORY Pathology/Cytolog y TISSUE SPECIMEN FROM SKIN / Unknown 01/17/2018 01/18/2018 12:24 PM CDT us Lars Isaac MD LAB - PATHOLOGY/CYTOLOGY ORD ERABLES Final Result DERMATOPATHOLOGY LABORATORY [facility] - Department of Dermatology [address] [place] [address], 5th Floor Lab [address] [place], [place] [id number] [place] [address] documented in this encounter Visit Diagnoses Not on filedocumented in this encounter Care Teams General Freight Agent Relationship Specialty Start Date End Date Callie Kelly MD [address] [place] [address] PCP - General 04/07/08 documented as of this encounter
--- OUTSIDE RECORDS SUMMARY | 2025-04-24 10:57 | XMS_ITS | Clinical Summary ---
Author Organization [facility] Address [address] [place] [address] Care Team Providers Care Auto Winder Name Role Phone Polina Ramires MD Primary Care Provider + [phone] Faisal Bee MD Unavailable [phone] Allergies Active Allergy Reactions Criticality Noted Date Comments Etodolac Other (See comments),Unknown High 07/09/2007 Etodolac high enzyme Medications calcium carbonate-bobby min D3 400-133.3 mg-unit tablet Activ e alendronate (FOSAMAX) 70 mg tablet TAKE 1 TABLET WEEKLY 30-60 MINS PRIOR TO BREAKFAST ON EMPTY STOMACH &DO NOT LIE DOWN AFTER. 5 09/07/19 19 Active ascorbic acid, vitamin C, 500 mg capsule Take by mouth Activ e azelastine 0.15 % (205.5 mcg) spray,non-aero dolores INSTILL 1 SPRAY IN EACH NOSTRIL DAILY 11 09/05/19 19 Active cholecalcifero l (VITAMIN D-3) 2000 unit capsule Take by mouth Active estradiol (ESTRACE) 0.01 % (0.1 mg/gram) vaginal cream INSERT 1 GRAM INTRAVAGINALLY 3 TIMES A WEEK FOR 90 DAYS 3 08/29/19 19 Active multivitamin tablet Take by mouth Active omega 3-bxl-vkt-fish oil 60-90-500 mg capsule Take by mouth Activ e cholecalcifero l, vitamin D3, (cholecalcifer ol, vit D3,,bulk,) 100,000 unit/gram powder Take 2 capsules by mouth daily Active pediatric multivitamin-i desi tablet,chewabl e Take 1 tablet by mouth daily Active mupirocin (BACTROBAN) 2 % ointment mupirocin 2 % topical ointment Active omega-3 fatty acids-fish oil 300-1,000 mg capsule Take 1 tablet by mouth daily Active varicella-zost er gE-AS01B, PF, (Shingrix, PF,) 50 mcg/0.5 mL vaccine Shingrix (PF) 50 mcg/0.5 mL intramuscular suspension, kit ADM 0.5ML IM UTD Active dexAMETHasone (DECADRON) 0.75 mg tablet Activ e cholecalcifero l (VITAMIN D-3) 1,000 unit Take 2 tablet/capsule (2,000 Units total) by mouth daily Active cycloSPORINE (Restasis) 0.05 % ophthalmic emulsion INSTILL 1 DROP INTO BOTH EYES TWICE A DAY 03/16/20 Active docosahexaenoi c acid-epa 120-180 mg capsule Take 1 tablet by mouth daily Active Bacillus coagulans (Digestive Advantage Prob Gummy) 250 million cell tablet,chewabl e Active acetaminophen ER (Tylenol Arthritis Pain) 650 mg 8 hr tablet takes 2 tablets every 8 hours as needed Active perfluorohexyl octane, PF, (Miebo, PF,) 100 % drops INSTILL ONE DROP INTO BOTH EYES FOUR TIMES DAILY . BOTTLE PREPARATION IS REQUIRED. REFER TO PACKAGE INSERT FOR SPECIAL PREPARATION AND ADMIN 07/21/19 24 Active pregabalin (LYRICA) 100 mg capsule Take 1 capsule twice a day by oral route. 10/21/19 25 Active glycerin (Optase MGD Advanced) 0.9 % drops APPLY TO EYES AT HS Active meloxicam (MOBIC) 15 mg tablet Take 1 tablet (15 mg total) by mouth daily 5 08/30/19 19 025 Discontin ued(Patie nt Reported) celecoxib (CeleBREX) 200 mg capsule celecoxib 200 mg capsule 09/16/19 20 025 Discontin ued(Patie nt Reported) Active Problems Problem Noted Date Diagnosed Date Thyroid nodule 01/10/2022 Dysphonia 01/10/2022 History of breast cancer 09/10/2018 Encounters Date Type Department Care Team Description 04/09/2025 Results Follow-Up [facility] Medicine Surgery [facility] [address] [place] [address] Cindy Hyatt PA Screening Mammogram Bilateral W Laura 04/07/2025 11:19 AM CDT - 04/07/2025 11:59 PM CDT Hospital Encounter [facility] - Breast Imaging [address] [facility] [address] [place] [address] History of breast cancer; History of partial mastectomy of right breast Discharge Disposition: Discharge to home or self care 04/07/2025 11:00 AM CDT Office Visit [facility] Medicine Surgery [address] [facility] [address] [place] [address] Cindy Hyatt PA History of breast cancer (Primary Dx); History of partial mastectomy of right breast; Encounter for screening mammogram for malignant neoplasm of breast from Last 3 Months Immunizations Immunization Administration Dates Next Due COVID-19 mRNA (NJOY) 0.3 m L (30 mcg) vaccine (12 years and up) 04/03/2024,04/12/2023 Influenza, Quad, Adjuvantate d, Intramuscular 04/12/2023,04/18/2021 Influenza, Quadrivalent, Hig h Dose, Preservative Free, Intrr 04/07/2022,04/16/2020,03/28/2019 Influenza, Trivalent, High D ose, Split, Preservative Free, Intramuscular 04/03/2024,03/28/2019,03/19/2018,03/18,03/31/2017,04/09/2016 Influenza, Trivalent, IM (MDV) 04/10/2014,2012 Influenza, Trivalent, Preser vative Free, Intramuscular 04/03/2015 Reebonz SARS-CoV-2 Monovalent Vaccination (12+ Yrs) PURPLE 01/23/2022 Pfizer Sars-Cov-2 Bivalent V accination (12+ YRS) 04/07/2022 Pneumococcal Conjugate PCV 13 04/23/2017 Pneumococcal Conjugate Pcv20 04/03/2024 Pneumococcal Polysaccharide PPV23 05/27/2018 Tdap 07/04/2021 ZOSTER LIVE 03/19/2018 ZOSTER Recombinant 10/04/2020, 0,09/10/2018,08/29,03/19/2018,03/18/2018 Surgical History Surgery Date Site/Laterality Comments BREAST LUMPECTOMY 06/25/2003 - 06/24/2004 Right Malignant Medical History Medical History Date Comments Allergic rhinitis Cancer (HCC) Thyroid disease Thyroid nodule Voice disorder Breast cancer (HCC) History of radiation therapy 2005 Family History Medical History Relation Name Comments Diabetes Brother Cancer Father Heart disease Father Cancer Mother Breast cancer Neg Hx Ovarian cancer Neg Hx Pancreatic cancer Neg Hx Prostate cancer Neg Hx Relation Name Status Comments Brother Father Mother Social History Tobacco Use Types Packs/Day Years Used Date Smoking Tobacco: Never Smokeless Tobacco: Never Tobacco Cessation:Counseling Given: Not Answered Alcohol Use Standard Drinks/Week Comments Defer 0 (1 standard drink = 0.6 oz pur e alcohol) AUDIT-C Answer Date Recorded Q1: How often do you have a drink containing alc ohol? Never 01/10/2022 Average Number of Drinks Not on file 022 Q3: How often do you have si x or more drinks on one occasion? 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 Gender Identity Not on file Sexual Orientation Not on file Obstetrics History Para Term AB IAB SAB Ectopic Multiple Livin g Live Births 0 0 0 0 0 0 0 0 0 0 0 Last Filed Vital Signs Vital Sign Reading Time Taken Comments Blood Pressure - - Pulse - - Temperature - - Respiratory Rate 20 01/10/2022 4:25 PM CDT Oxygen Saturation - - Inhaled Oxygen Concentration - - Weight 67.2 kg (148 lb 3.2 oz) 04/07/2025 11:02 AM CDT Height 162.6 cm (5' 4.02) 04/07/2025 11:02 AM C DT Body Mass Index 25.43 04/07/2025 11:02 AM CDT Plan of Treatment Health Maintenance Due Date Last Done Comments Depression Screening 1945 Fall Risk Assessment 1945 Osteoporosis Screening-Bone Density Scan 1945 Hepatitis B Screening 1963 Well Visit 65+ 2010 Covid-19 Vaccine (2023- 5 season) 2025 04/03/2024, 04/12/2023, 04/07/2022, Additional history exists Influenza Vaccine (#1) 2025 , 04/12/2023, 04/07/2022, Additional history exists DTaP/Tdap/Td Vaccine (2 - Td or Tdap) 07/04/2031 07/04/2021 Zoster Vaccine Completed 10/04/2020, 04/26, 09/10/2018, Additional history exists Pneumococcal vaccine 65+ Completed 024, 05/27/2018, 04/23/2017 Breast Cancer Screening-Mammogram Discontinued 04/07/2025, 04/07/2024, 04/06/2023, Additional history exists Procedures Procedure Name Priority Date/Time Associated Diagnosis Comments SCREENING MAMMOGRAM BILATERAL W LAURA Schedule Routine, Read Routine (OP Routine) 04/07/2025 11:32 AM CDT History of breast cancer History of partial mastectomy of right breast from Last 3 Months Results * Screening Mammogram Bilateral W Laura (04/07/2025 11:32 AM CDT) Anatomical Region Laterality Modality Breast Bilateral Mammography Impressions 04/08/2025 1:59 PM CDT Bilateral No evidence of malignancy in either breast. OVERALL BI-RADS FINAL ASSESSMENT: 2 - Benign RECOMMENDATION: Recommend bilateral annual screening mammography. Narrative 04/08/2025 1:59 PM CDT EXAMINATION: Screening Mammogram Bilateral W Laura: 04/07/2025 COMPARISON: Relevant prior studies available at the time of interpretation were reviewed, including the most recent mammogram on: 04/07/2024. TECHNIQUE: Mammography was performed with 2D and 3D digital breast tomosynthesis (DBT) images. CAD was utilized. BREAST PARENCHYMAL COMPOSITION: There are scattered areas of fibroglandular density. FINDINGS: Right 1) Post-Surgical Finding: There are post-surgical findings from a previous lumpectomy with radiation seen in the right breast. There has been no interval development of a suspicious finding. This finding is benign. There is no suspicious mass, calcification, or architectural distortion. Left There is no suspicious mass, calcification, or architectural distortion. Peyton Hassan NP IMG MAMMO PROCEDURES Final Result from Last 3 Months Insurance MEDICARE [facility] [id number] [facility] MEDICARE [facility] OPEN ACCESS [facility] [id number] [facility] [id number] Care Teams Auto Winder Relationship Specialty Start Date End Date Polina Ramires MD PCP - General Internal Medicine 09/10/18 Faisal Bee MD [address] [facility] [address] [place] [address] Referring Physician Obstetrics and Gynecology 02/25/20
--- OUTSIDE RECORDS SUMMARY | 2025-04-24 10:57 | XMS_ITS | Encounter Summary ---
Author Organization [facility] Address [address] [facility] [address] [place] [address] Phone Care Team Providers Care Manufacturing Director Name Role Phone Polina Ramires MD Primary Care Provider + [phone] Faisal Bee MD Unavailable [phone] Encounter Details Date Type Department Care Team (Late st Contact Info) Description 04/09/2025 Results Follow-Up [facility] Medicine Surgery [address] [facility] Floor [address] [place] [address] Cindy Hyatt PA [address] [facility] [phone] [place] [address] Screening Mammogram Bilateral W Jaun Social History Tobacco Use Types Packs/Day Years Used Date Smoking Tobacco: Never Smokeless Tobacco: Never Alcohol Use Standard Drinks/Week Comments Defer 0 [...] on file 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
--- OUTSIDE RECORDS SUMMARY | 2025-04-24 10:58 | XMS_ITS | Clinical Summary ---
Author Organization [facility] [employer] Address [address] [facility] [place] [address] Care Team Providers Care Packing Machine Can Feeder Name Role Phone Callie Kelly MD Primary Care Provider [phone] Source Comments [facility] [employer],non-owned Affiliates and Associated Physician Practices is amultiple site organization consisting of ambulatory clinics and hospital sitesin [place], [place], [place] and [place]. This disclosure is being madepursuant to the Care Everywhere program and may not contain all information available regarding this patient. Last updated 18.[employer] Allergies Active Allergy Reactions Criticality Noted Date Comments Etodolac Other Low 11/14/2012 PATIENT STATES INCREASED LIVER ENZYMES. Iodine Unknown 02/25/2020 Medications * Be aware that medications may not be up to date on this document. Alwaysverify current medications with the patient. Cholecalcifero l (VITAMIN D PO)Indications :Nonallergic rhinitis Take 2 capsules by mouth once daily Active Multiple Vitamin (MULTI VITAMIN PO)Indications :Nonallergic rhinitis Take 1 tablet by mouth once daily Active Ascorbic Acid (VITAMIN C PO)Indications :Nonallergic rhinitis Take 1 tablet by mouth once daily Active estradiol (ESTRACE) 0.1 MG/GM vaginal cream INSERT 1 GRAM INTRAVAGINALLY 3 TIMES A WEEK FOR 90 DAYS 3 9 Active alendronate (FOSAMAX) 70 MG tablet TAKE 1 TABLET WEEKLY 30-60 MINS PRIOR TO BREAKFAST ON EMPTY STOMACH &DO NOT LIE DOWN AFTER. 5 9 Active celecoxib (CELEBREX) 200 MG capsule Take 200 mg by mouth once daily 0 Active Cholecalcifero l (VITAMIN D3) 718162 UNIT/GM Take 2 capsules by mouth once daily Active RESTASIS 0.05 % ophthalmic suspension INSTILL 1 DROP INTO BOTH EYES TWICE A DAY 0 Active fish oil/omega-3 fatty acids (PROMEGA;CARDI -OMEGA 3) 1000 MG capsule Take 1 tablet by mouth once daily Active azelastine (ASTEPRO) 205.5 MCG/SPRAY nasal sprayIndicatio ns:Nonallergic rhinitis [place] 1 (one) spray into each nostril once daily May use twice a day if needed 1 Inhaler 11 1 Active Active Problems Problem Noted Date Diagnosed Date OA (osteoarthritis) 06/08/2020 Osteopenia 10/14/2018 History of breast cancer 09/10/2018 Non-allergic rhinitis 11/14/2012 Immunizations Immunization Administration Dates Next Due INFLUENZA VACCINE 03/28/2019, 8,03/31/2017,2015 INFLUENZA VACCINE, HIGH-DOSE , QUADR. (FLUZONE HIGH-DOSE QUADRIVALENT; 65Y+), 0.7 ML (HD-IIV4) 04/16/2020,03/28/2019 PNEUMOCOCCAL PPSV23 05/27/2018 Pneumococcal Pcv13 Conj 04/23/2017 Zoster Hzv Vacc Recombinant Inj Im 10/04,05/16/2020,09/10/2018,2018,03/18/2018 Social History Tobacco Use Types Packs/Day Years Used Date Smoking Tobacco: Never Smokeless Tobacco: Never Alcohol Use Standard Drinks/Week Comments No 0 (1 standard drink = 0.6 oz pur e alcohol) PHQ-2 Answer Date Recorded PHQ2 TOTAL SCORE 0 10/29/2020 Comments Unknown Sex and Gender Information Value Date Recorded Sex Assigned at Not on file Legal Sex Female 5:39 PM VENDETTE Gender Identity Not on file Sexual Orientation Not on file Last Filed Vital Signs Vital Sign Reading Time Taken Comments Blood Pressure 144/85 06/08/2020 1:54 PM VENDETTE Pulse 99 06/08/2020 1:54 PM VENDETTE Temperature 36.3 C (97.3 F) 06/08/2020 1:54 PM VENDETTE Respiratory Rate 18 06/08/2020 1:54 PM VENDETTE Oxygen Saturation 96% 06/08/2020 1:54 PM VENDETTE Inhaled Oxygen Concentration - - Weight 70.2 kg (154 lb 12.8 oz) 06/08/2020 1:54 PM VENDETTE Height 160 cm (5' 3) 06/08/2020 1:54 PM VENDETTE Body Mass Index 27.42 06/08/2020 1:54 PM VENDETTE Plan of Treatment Health Maintenance Due Date Last Done Comments BONE DENSITY TESTING 1945 DTAP/TDAP/TD VACCINES (1 - Tdap) 1964 Respiratory Syncytial Virus (RSV) Vaccine Pt: or over 60 yrs (1 - 1-dose 75+ series) 2020 DEPRESSION SCREENING 06/25/2024 COVID-19 VACCINE ( - 2024- season) 2025 09/03/2020, 08/13/2020 INFLUENZA VACCINE (#1) 2025 , 03/28/2019, 03/28/2019, Additional history exists PNEUMOCOCCAL VACCINE 50+ Completed 05/27/2018, 03/27 ZOSTER VACCINE Completed 10/04/2020, 04/26, 09/10/2018, Additional history exists HEPATITIS B VACCINE Aged Out No longe r eligible based on patient's age to complete this topic HIB VACCINE Aged Out No longer eligi ble based on patient's age to complete this topic HPV VACCINE Aged Out No longer eligi ble based on patient's age to complete this topic MENINGOCOCCAL (Group B) VACCINE SHARED DECISION-MAKING Aged Out No longer eligible based on patient's age to complete this topic MENINGOCOCCAL GROUPS A/C/Y/W VACCINE Aged Out No longer eligible based on patient's age to complete this topic Insurance [employer] Care Teams Packing Machine Can Feeder Relationship Specialty Start Date End Date Callie Kelly MD [address] [place] [address] PCP - General 04/07/08
--- OUTSIDE RECORDS SUMMARY | 2025-04-24 10:58 | XMS_ITS | Patient Health Record ---
Author Organization [facility] Address [address] [place], [place] [id number] Care Team Providers Care Dental Nurse Name Role Phone ALLISON HUNTER Unavailable [phone] Polina Ramires Unavailable Unavailable Reason For Referral No Information Social History Social History Additional Details Category Social Info Options Details Migrated Social History Migrated Social History History of tobacco use : , Smoking Status : Never smoked Plan Of Treatment No Information Insurance Providers Payer Name Payer Address Payer Phone Subscriber Number Group Number Insured Name Patient Relationship to Insured Coverage Start Date [facility]age End [facility] [address] [place], [place] [id number] ARIEL SALGADO Self - patient is the insured
== END 2025-04-24 10:25 | disposition home or self-care (01) ==
LOC: CHSIMG 10:28
PROVIDERS: PCP Internal Medicine; Visit Provider Internal Medicine
DX: S09.93XA Unspecified injury of face, initial encounter (principal)
CPT/HCPCS: 70486

== ENCOUNTER 2025-06-16 14:34 | Outpatient (CLI) | payer OTHER, SELFPAY ==
--- NOTE | ~2025-06-16 | XR_ITS ---
XR thoracic spine 3V 06/16/2025 14:53 Indication: Back pain Procedure: 3 views thoracic spine Comparison: No prior studies for comparison. Findings: There is moderate thoracic spondylosis with dextroscoliosis. No fracture, subluxation or dislocation. There is upper lumbar spondylosis particularly at L1-2. No significant paraspinal soft tissue abnormality. There is atherosclerosis of the aorta. Impression: 1: Moderate thoracic spondylosis with dextroscoliosis. Reviewed, dictated and finalized at location O. GER HARDWARE Impression: 1: Moderate thoracic spondylosis with dextroscoliosis.
== END 2025-06-16 14:35 | disposition home or self-care (01) ==
PROVIDERS: PCP Internal Medicine; Visit Provider Nurse Practitioner Family
DX: M47.894 Other spondylosis, thoracic region (principal)
CPT/HCPCS: 72072